=== PATIENT | female | born 1975 | race Caucasian/White ===

== ENCOUNTER 2017-09-04 13:06 | Emergency (ER) | payer OTHER ==
[~2017-09-04] VITALS: Ht 175.3 cm; Wt 61.2 kg
[~2017-09-04 13:06] MED LIST: CELE-1 PO; CYCL-332 PO; CYCL10TA PO; IBU800 PO; LOR5 PO; LOR75 PO; MET4 PO; NO ROUTINE MEDS; PER PO; PREG75CA61 PO
[2017-09-04] MEDS ORDERED: MULT1CAP59 PO (13:33)
--- NOTE | 2017-09-04 13:34 | ER Report ---
History and Physical Time Seen By MD: 13:33 Hx. of Stated Complaint: patient reports sudden onset of L arm pain and tingling as well as neck pain, also feeling some n/t in L leg and lightheaded HPI/ROS CHIEF COMPLAINT: Left arm and leg numbness and tingling HISTORY OF PRESENT ILLNESS: 42-year-old female patient presents to the emergency room with complaint of left arm and left leg numbness and tingling. Patient states this started approximately 2 hours prior to arrival. Patient states that she was doing laundry and suddenly developed tingling in left arm. She states that shortly after that she noticed that she was having some numbness tingling in left leg. She states that shortly after that she had a sharp pain to the neck. She states that the pain to the neck has resolved. She states that the numbness and tingling is persistent. She did call and talk with her informed him that she was coming to emergency room. 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 She denies any weakness, she states she just does not feel right. She has not taken any medication for this. She denies any nausea , vomiting or diarrhea. REVIEW OF SYSTEMS: Respiratory: No cough, no dyspnea. Cardiovascular: No chest pain, no palpitations. Gastrointestinal: No vomiting, no abdominal pain. Musculoskeletal: As noted above Allergies: Coded Allergies: Sulfa (Sulfonamide Antibiotics) (Verified Allergy, Mild, 09/04/17) latex (Unverified Allergy, Unknown, 09/04/17) Home Meds Reported Medications Multivitamin (MULTIVITAMINS) 1 Each Capsule, 1 EACH PO, CAPSULE 09/04/17 Discontinued Reported Medications Acetaminophen/Hydrocodone (Lortab 7.5/500) 7.5 Mg/500 Mg Tab, 1 TAB PO Q4-6H Y, #15 0 Refills 02/19/11 [None] No Conflict Check, 0 Refills 02/18/11 [No Routine Meds] No Conflict Check 06/10/10 Past Medical/Surgical History Patient has a past medical history of asthma. Patient denies any surgical history. Reviewed Nurses Notes: Yes Hx Smoking: No Hx Substance Use Disorder: No Hx Alcohol Use: No Constitutional Vital Sign - Last 24 Hours 09/04/17 09/04/17 09/04/17 09/04/17 13:25 13:27 13:32 13:36 Pulse 84 87 Resp 16 13 B/P (MAP) 140/81 (100) 140/81 112/77 (89) Pulse Ox 98 97 O2 Delivery Room Air 09/04/17 09/04/17 09/04/17 09/04/17 13:51 14:00 14:06 14:30 Pulse 76 77 Resp 18 19 B/P (MAP) 108/66 (80) 98/62 (74) Pulse Ox 95 94 09/04/17 09/04/17 09/04/17 09/04/17 14:36 15:00 15:05 15:20 Pulse 75 69 71 Resp 13 B/P (MAP) ???/??? (1665) Pulse Ox 96 95 09/04/17 09/04/17 09/04/17 09/04/17 15:35 15:50 16:05 16:41 Pulse 71 78 87 B/P (MAP) 114/76 (89) Pulse Ox 96 99 09/04/17 09/04/17 09/04/17 09/04/17 16:45 17:00 17:15 17:30 Pulse 69 75 74 70 B/P (MAP) 101/86 (91) 91/71 (78) Pulse Ox 98 Physical Exam General Appearance: The patient is alert, has no immediate need for airway protection and no current signs of toxicity. ENT: Tympanic membranes are pearly-alejandro, auditory canals are patent, mucous membranes are moist. Respiratory: Chest is non tender, lungs are clear to auscultation. Cardiac: regular rate and rhythm Gastrointestinal: Abdomen is soft and non tender, no masses, bowel sounds normal. Musculoskeletal: Neck: Neck is supple and non tender. Patient does have bilateral trapezius tightness. Extremities have full range of motion and are non tender. Skin: No rashes or lesions. Neuro: Patient is alert and oriented 4, cranial nerves II through XII grossly intact, patient has no weakness to upper or lower extremities. DIFFERENTIAL DIAGNOSIS: After history and physical exam differential diagnosis was considered for NH, anxiety, stroke. Medical Decision Making Data Points Result Diagram: 09/04/17 1332 09/04/17 1332 Laboratory Hematology Test 09/04/17 13:32 Red Blood Count 4.81 M/uL (4.17-5.56) Mean Corpuscular Volume 85.1 fL (80.0-96.0) Mean Corpuscular Hemoglobin 28.2 pg (26.0-33.0) Mean Corpuscular Hemoglobin Concent 33.2 g/dL (32.0-36.0) Red Cell Distribution Width 15.0 % (11.5-14.5) Mean Platelet Volume 10.4 fL (7.2-11.1) Neutrophils (%) (Auto) 64.6 % (39.4-72.5) Lymphocytes (%) (Auto) 25.7 % (17.6-49.6) Monocytes (%) (Auto) 7.9 % (4.1-12.4) Eosinophils (%) (Auto) 1.0 % (0.4-6.7) Basophils (%) (Auto) 0.8 % (0.3-1.4) Nucleated RBC Relative Count (auto) 0.1 /100WBC Neutrophils # (Auto) 4.9 K/uL (2.0-7.4) Lymphocytes # (Auto) 2.0 K/uL (1.3-3.6) Monocytes # (Auto) 0.6 K/uL (0.3-1.0) Eosinophils # (Auto) 0.1 K/uL (0.0-0.5) Basophils # (Auto) 0.1 K/uL (0.0-0.1) Nucleated RBC Absolute Count (auto) 0.00 K/uL D-Dimer Quantitative (PE/DVT) < 0.27 ug/ml (0-0.50) Sodium Level 139 mmol/L (137-145) Potassium Level 3.5 mmol/L (3.5-5.0) Chloride Level 106 mmol/L (98-107) Carbon Dioxide Level 22 mmol/L (22-31) Blood Urea Nitrogen 12 mg/dl (7-18) Creatinine 0.80 mg/dl (0.52-1.04) Glomerular Filtration Rate Calc > 60.0 Random Glucose 106 mg/dl (75-110) Calcium Level 9.3 mg/dl (8.4-10.2) Total Bilirubin 0.7 mg/dl (0.2-1.3) Aspartate Amino Transf (AST/SGOT) 44 U/L (0-35) Alanine Aminotransferase (ALT/SGPT) 35 U/L (0-56) Alkaline Phosphatase 75 U/L (0-126) Troponin I < 0.012 ng/ml Total Protein 7.7 gm/dl (6.3-8.2) Albumin 4.4 g/dl (3.5-5.0) Chemistry Test 09/04/17 13:32 White Blood Count 7.6 k/uL (4.5-11.0) Red Blood Count 4.81 M/uL (4.17-5.56) Hemoglobin 13.6 g/dL (12.0-16.0) Hematocrit 41.0 % (34.0-47.0) Mean Corpuscular Volume 85.1 fL (80.0-96.0) Mean Corpuscular Hemoglobin 28.2 pg (26.0-33.0) Mean Corpuscular Hemoglobin Concent 33.2 g/dL (32.0-36.0) Red Cell Distribution Width 15.0 % (11.5-14.5) Platelet Count 233 K/uL (150-450) Mean Platelet Volume 10.4 fL (7.2-11.1) Neutrophils (%) (Auto) 64.6 % (39.4-72.5) Lymphocytes (%) (Auto) 25.7 % (17.6-49.6) Monocytes (%) (Auto) 7.9 % (4.1-12.4) Eosinophils (%) (Auto) 1.0 % (0.4-6.7) Basophils (%) (Auto) 0.8 % (0.3-1.4) Nucleated RBC Relative Count (auto) 0.1 /100WBC Neutrophils # (Auto) 4.9 K/uL (2.0-7.4) Lymphocytes # (Auto) 2.0 K/uL (1.3-3.6) Monocytes # (Auto) 0.6 K/uL (0.3-1.0) Eosinophils # (Auto) 0.1 K/uL (0.0-0.5) Basophils # (Auto) 0.1 K/uL (0.0-0.1) Nucleated RBC Absolute Count (auto) 0.00 K/uL D-Dimer Quantitative (PE/DVT) < 0.27 ug/ml (0-0.50) Glomerular Filtration Rate Calc > 60.0 Calcium Level 9.3 mg/dl (8.4-10.2) Total Bilirubin 0.7 mg/dl (0.2-1.3) Aspartate Amino Transf (AST/SGOT) 44 U/L (0-35) Alanine Aminotransferase (ALT/SGPT) 35 U/L (0-56) Alkaline Phosphatase 75 U/L (0-126) Troponin I < 0.012 ng/ml Total Protein 7.7 gm/dl (6.3-8.2) Albumin 4.4 g/dl (3.5-5.0) Coagulation Test 09/04/17 13:32 D-Dimer Quantitative (PE/DVT) < 0.27 ug/ml EKG/Imaging EKG Interpretation 12 lead EKG: Rhythm: normal sinus rhythm [place]: Rightward QRS: normal ST segments: normal Imaging EXAMINATION: Brain MRI without IV contrast HISTORY: Numbness and tingling in the arms and legs. COMPARISON: Noncontrast head CT dated 09/04/2017. TECHNIQUE: Multi-planar, multi-sequence brain MRI was performed without IV contrast administration. FINDINGS: Brain volume: Normal. Sagittal midline structures: Negative. Ventricles: Negative. Acute ischemic changes: None. Hemorrhage: None. Masses / edema: None. Alejandro-white: Negative. White matter: Minimal patchy T2/FLAIR hyperintensity in the frontal and parietal white matter. Vessels: Negative. Extra-axial: None. Calvarium / scalp: Negative. Skull base: Negative. Visualized sinuses / orbits: Rightward nasal septal deviation. Visualized upper neck: Negative. IMPRESSION: 1. No acute intracranial abnormality. 2. Minimal patchy T2/FLAIR hyperintensity in the frontal and parietal white matter. The differential diagnosis includes migraine syndromes, demyelinating disease, sequela of prior infection/inflammation/trauma, and chronic small vessel ischemic change. 3. Rightward nasal septal deviation. Report Dictated By: Efraín Colby MD at 09/04/2017 4:50 PM Report E-Signed By: Efraín Colby MD at 09/04/2017 4:55 PM 2 VIEWS CHEST INDICATION: Chest pain. Numbness and tingling both arms and legs. COMPARISON: None available FINDINGS: Cardiomediastinal silhouette and pulmonary vessels within normal limits. There is no focal infiltrate or lobar consolidation. There is no pneumothorax or pleural effusion. No nodule. Upper abdomen is unremarkable. No acute bony abnormality. IMPRESSION: 1. No acute cardiopulmonary process. Report Dictated By: Ryan Christensen at 09/04/2017 3:02 PM Report E-Signed By: Ryan Christensen at 09/04/2017 3:03 PM EXAMINATION: Head CT without intravenous contrast HISTORY: Numbness and tingling to left arm and leg. COMPARISON: None. TECHNIQUE: Contiguous axial images were obtained from the skull base to the vertex without intravenous contrast. Sagittal and coronal reformatted images are also submitted. One of the following dose optimization techniques was utilized in the performance of this exam: Automated exposure control; adjustment of the mA and/ or kV according to the patient's size; or use of an iterative reconstruction technique. Specific details can be referenced in the facility's radiology CT exam operational policy. FINDINGS: Brain and intracranial structures: Ventricles, sulci, and cisterns are normal in size. Alejandro-white matter differentiation is maintained. Slight hyperdense dural based nodule along the left side of the falx along the posterior left frontal lobe, measuring 11 x 7 x 3 mm. No edema in the adjacent brain or significant mass effect. No midline shift, acute hemorrhage, or evidence of acute infarct. Calvarium / scalp: Negative. Skull base / visualized face: Nasal septum bows towards the right. Visualized sinuses / orbits: Negative. IMPRESSION: No evidence of acute infarct or intracranial hemorrhage. Small pleural-based nodule along the left side of the falx along the posterior left frontal lobe, measuring 11 x 7 x 3 mm. This is most likely a meningioma. Report Dictated By: Dionisio Gillis MD at 09/04/2017 2:59 PM Report E-Signed By: Dionisio Gillis MD at 09/04/2017 3:07 PM ED Course/Re-evaluation ED Course Patient was admitted to an exam room, history and physical were obtained. Differential diagnoses were considered. On examination patient was alert and oriented 4, cranial nerves II-XII grossly intact. A CBC, CMP, troponin, EKG, chest x-ray, CT scan of the head were done. The lab results and the chest x-ray results were negative. EKG showed a normal sinus rhythm. The CT scan of the head did show a small mass, 11 mm x 3 x 7 mm. From the location that believe that it was likely a meningioma. I did discuss the case with Dr. Deng, neurologist at [facility], his recommendation was to go ahead and do an MRI to make sure the patient has not had a stroke or TIA. His recommendation was to follow- up in 1-2 weeks. I discussed this with the patient and her . We did go ahead and do the MRI of the brain. That was unremarkable except for did show some nonspecific white matter changes which are fairly nonspecific. I discussed this with the patient and her . We will go ahead and discharge him home at this time. They're to return if any symptoms return. They are to follow-up with neurology in the next 1-2 weeks. The patient and her verbalized understanding and agreement. Decision to Disposition Date: Sep 04, 2017 Decision to Disposition Time: 17:19 Depart Departure Latest Vital Signs Vital Signs Date Time Temp Pulse Resp B/P (MAP) Pulse Ox O2 Delivery O2 Flow Rate FiO2 09/04/17 17:30 70 91/71 (78) 09/04/17 16:45 98 09/04/17 14:36 13 09/04/17 13:27 Room Air Impression: Primary Impression: Numbness and tingling of left arm and leg Condition: Improved Disposition: HOME OR SELF-CARE Referrals: HOMERO FITZGERALD PA-C (PCP) Patient Instructions: GENERAL ER DISCHARGE INSTRUCTIONS Additional Instructions: Continue with normal diet and activity. Return to the ER if this happens again. Follow up with Neurology in 1-2 weeks, call to make an appointment. [facility] [address] [place], [place] Dr. Deng recommended being seen in 1-2 weeks. Let them know that you were seen in the ER and we spoke with Dr. Deng. MADELEINE SARMIENTO Sep 04, 2017 13:34
[2017-09-04] MEDS ORDERED: ASPIRIN 81 MG CHEW PO ONE (13:45)
--- NOTE | 2017-09-04 13:50 | EKG ---
FACILITY: [facility] PATIENT NAME: LEXIE HIGGINS : [id number] MR: [id number] V: [id number] EXAM DATE: ORDERING PHYSICIAN: MADELEINE SARMIENTO TECHNOLOGIST: BRANDYN Bennett Reason : Blood Pressure : / mmHG Vent. Rate : 082 BPM Atrial Rate : 082 BPM P-R Int : 176 ms QRS Dur : 100 ms QT Int : 384 ms P-R-T Axes : 084 093 077 degrees QTc Int : 448 ms Normal sinus rhythm Possible Left atrial enlargement Rightward axis Incomplete right bundle branch block Borderline ECG No previous ECGs available Confirmed by ARIELLA LEE ([id number]) on 09/04/2017 1:53:14 PM Referred By: Confirmed By:ARIELLA LEE
[2017-09-04 14:06] LABS: PLATELET COUNT, AUTOMATED 233 K/uL (150-450)
--- NOTE | 2017-09-04 15:07 | RADIOLOGY IMAGING REPORT ---
FACILITY: [facility] PATIENT NAME: Daria Thompson : 1975 MR: [id number] V: [id number] EXAM DATE: ORDERING PHYSICIAN: MADELEINE SARMIENTO TECHNOLOGIST: Location: [facility] Patient: Daria Thompson : 1975 Visit/Account:[id number] Date of Sevice: 09/04/2017 2 VIEWS CHEST INDICATION: Chest pain. Numbness and tingling both arms and legs. COMPARISON: None available FINDINGS: Cardiomediastinal silhouette and pulmonary vessels within normal limits. There is no focal infiltrate or lobar consolidation. There is no pneumothorax or pleural effusion. No nodule. Upper abdomen is unremarkable. No acute bony abnormality. IMPRESSION: 1. No acute cardiopulmonary process. Report Dictated By: Ryan Christensen at 09/04/2017 3:02 PM Report E-Signed By: Ryan Christensen at 09/04/2017 3:03 PM WSN:[id number]
--- NOTE | 2017-09-04 15:12 | RADIOLOGY IMAGING REPORT ---
FACILITY: [facility] PATIENT NAME: Daria Thompson : 1975 MR: [id number] V: [id number] EXAM DATE: ORDERING PHYSICIAN: MADELEINE SARMIENTO TECHNOLOGIST: Location: [facility] Patient: Daria Thompson : 1975 Visit/Account:[id number] Date of Sevice: 09/04/2017 EXAMINATION: Head CT without intravenous contrast HISTORY: Numbness and tingling to left arm and leg. COMPARISON: None. TECHNIQUE: Contiguous axial images were obtained from the skull base to the vertex without intraven ous contrast. Sagittal and coronal reformatted images are also submitted. One of the following dose optimization techniques was utilized in the performance of this exam: Autom ated exposure control; adjustment of the mA and/or kV according to the patient's size; or use of an i terative reconstruction technique. Specific details can be referenced in the facility's radiology C T exam operational policy. FINDINGS: Brain and intracranial structures: Ventricles, sulci, and cisterns are normal in size. Alejandro-white ma tter differentiation is maintained. Slight hyperdense dural based nodule along the left side of the f zain along the posterior left frontal lobe, measuring 11 x 7 x 3 mm. No edema in the adjacent brain or significant mass effect. No midline shift, acute hemorrhage, or evidence of acute infarct. Calvarium / scalp: Negative. Skull base / visualized face: Nasal septum bows towards the right. Visualized sinuses / orbits: Negative. IMPRESSION: No evidence of acute infarct or intracranial hemorrhage. Small pleural-based nodule along the left side of the falx along the posterior left frontal lobe, jyoti suring 11 x 7 x 3 mm. This is most likely a meningioma. Report Dictated By: Dionisio Gillis MD at 09/04/2017 2:59 PM Report E-Signed By: Dionisio Gillis MD at 09/04/2017 3:07 PM WSN:[id number]
--- NOTE | 2017-09-04 16:58 | RADIOLOGY IMAGING REPORT ---
FACILITY: [facility] PATIENT NAME: Daria Thompson : 1975 MR: [id number] V: [id number] EXAM DATE: ORDERING PHYSICIAN: MADELEINE SARMIENTO TECHNOLOGIST: Location: [facility] Patient: Daria Thompson : 1975 Visit/Account:[id number] Date of Sevice: 09/04/2017 EXAMINATION: Brain MRI without IV contrast HISTORY: Numbness and tingling in the arms and legs. COMPARISON: Noncontrast head CT dated 09/04/2017. TECHNIQUE: Multi-planar, multi-sequence brain MRI was performed without IV contrast administration. FINDINGS: Brain volume: Normal. Sagittal midline structures: Negative. Ventricles: Negative. Acute ischemic changes: None. Hemorrhage: None. Masses / edema: None. Alejandro-white: Negative. White matter: Minimal patchy T2/FLAIR hyperintensity in the frontal and parietal white matter. Vessels: Negative. Extra-axial: None. Calvarium / scalp: Negative. Skull base: Negative. Visualized sinuses / orbits: Rightward nasal septal deviation. Visualized upper neck: Negative. IMPRESSION: 1. No acute intracranial abnormality. 2. Minimal patchy T2/FLAIR hyperintensity in the frontal and parietal white matter. The differential diagnosis includes migraine syndromes, demyelinating disease, sequela of prior infection/inflammation /trauma, and chronic small vessel ischemic change. 3. Rightward nasal septal deviation. Report Dictated By: Efraín Colby MD at 09/04/2017 4:50 PM Report E-Signed By: Efraín Colby MD at 09/04/2017 4:55 PM WSN:[email or web address]
[2017-09-04 17:30] VITALS: BP 91/71
== END 2017-09-04 17:39 | disposition home or self-care (01) ==
LOC: ER 13:06
DX: R20.0 Anesthesia of skin (principal); R20.2 Paresthesia of skin
CPT/HCPCS: 70450; 70551; 71046; 82040; 82247; 82310; 82374; 82435; 82565; 82947; 84075; 84132; 84155; 84295; 84450; 84460; 84484; 84520; 85025; 85379; 93005; 99284

== ENCOUNTER 2018-01-25 06:57 | Emergency (ER) | payer OTHER ==
[~2018-01-25 06:57] MED LIST changes: +MULT1CAP59 PO
--- NOTE | 2018-01-25 07:07 | ER Report ---
History and Physical Time Seen By MD: 07:15 Hx. of Stated Complaint: FELT A PULL IN LEFT SHOULDER AFTER CARRYING SOMETHING UP THE STAIRS WITH RIGHT HAND. STATES THAT HER PAIN HAS WORSENED AND NOW HAS NUMBNESS AND TINGLING IN HAND. HPI/ROS CHIEF COMPLAINT: Left arm pain, paresthesias, subjective weakness HISTORY OF PRESENT ILLNESS: Patient is a 42-year-old female here with complaints of left arm and shoulder pain, paresthesias to the distal extremity lateral aspect of the arm. She has a history of musculoskeletal issues with her upper back and neck and has been seem by a therapist previously with steroid injections. Patient reports that approximately one week ago she felt a popping sensation in her neck with subsequent progression of paresthesias to her distal lateral arm. She had intact strength which is equal in the upper extremities bilaterally. She also complains of pain with range of motion of the left shoulder. She reports that she previously had an MRI of the neck and declines further radiologic testing at this time.. Patient denies fevers, chills, chest pain, shortness of breath, nausea, vomiting. REVIEW OF SYSTEMS: Constitutional: No fever, no chills. Eyes: No discharge. ENT: No sore throat. Cardiovascular: No chest pain, no palpitations. Respiratory: No cough, no shortness of breath. Gastrointestinal: No abdominal pain, no vomiting. Genitourinary: No hematuria. Musculoskeletal: No back pain. Skin: No rashes. Neurological: No headache, + left upper extremity paresthesias/subjective weakness Allergies: Coded Allergies: Sulfa (Sulfonamide Antibiotics) (Verified Allergy, Mild, 09/04/17) latex (Unverified Allergy, Unknown, 09/04/17) Home Meds Active Scripts Cyclobenzaprine Hcl (CYCLOBENZAPRINE HCL) 10 Mg Tablet, 10 MG PO Q8H Y for MUSCLE SPASMS, #20 TAB 0 Refills Prov:KEVIN BOWIE DO 01/25/18 Prednisone (PREDNISONE) 20 Mg Tablet, 40 MG PO QDAY for 5 Days, #10 TAB Prov:KEVIN BOWIE DO 01/25/18 Reported Medications Multivitamin (MULTIVITAMINS) 1 Each Capsule, 1 EACH PO, CAPSULE 09/04/17 Hx Smoking: No Hx Substance Use Disorder: No Hx Alcohol Use: No Constitutional Vital Sign - Last 24 Hours 5/28/18 01/25/18 01/25/18 01/25/18 07:00 07:01 08:00 08:30 Temp 97.3 Pulse 61 63 Resp 18 B/P (MAP) 119/70 (86) 119/70 108/68 (81) 114/80 (91) Pulse Ox 100 91 O2 Delivery Room Air 01/25/18 01/25/18 01/25/18 01/25/18 09:00 09:00 09:30 10:00 Pulse 62 62 67 62 B/P (MAP) 107/72 (84) 111/64 (80) 111/66 (81) Pulse Ox 90 90 91 90 01/25/18 10:19 B/P (MAP) 97/65 (76) Physical Exam General Appearance: The patient is alert, has no immediate need for airway protection and no signs of toxicity. + Moderate distress due to pain Eyes: Pupils equal and round no pallor or injection. ENT, Mouth: Mucous membranes are moist. Respiratory: There are no retractions, lungs are clear to auscultation. Cardiovascular: Regular rate and rhythm. Gastrointestinal: Abdomen is soft and non tender, no masses, bowel sounds normal. Neurological: No focal motor deficits, sensation intact in UE b/l Skin: Warm and dry, no rashes. Musculoskeletal: Neck is supple non tender. Extremities are nontender, nonswollen and have full range of motion + with painful ROM of the left shoulder DIFFERENTIAL DIAGNOSIS: After history and physical exam differential diagnosis was considered for nerve impingement, neuropathy, trauma, arthritis, neuropathy Medical Decision Making Data Points Result Diagram: 01/25/18 0730 01/25/18 0730 Laboratory Hematology Test 01/25/18 07:30 Red Blood Count 4.61 M/uL (4.17-5.56) Mean Corpuscular Volume 85.7 fL (80.0-96.0) Mean Corpuscular Hemoglobin 29.1 pg (26.0-33.0) Mean Corpuscular Hemoglobin Concent 33.9 g/dL (32.0-36.0) Red Cell Distribution Width 14.9 % (11.5-14.5) Mean Platelet Volume 10.5 fL (7.2-11.1) Neutrophils (%) (Auto) 76.5 % (39.4-72.5) Lymphocytes (%) (Auto) 13.5 % (17.6-49.6) Monocytes (%) (Auto) 7.4 % (4.1-12.4) Eosinophils (%) (Auto) 1.9 % (0.4-6.7) Basophils (%) (Auto) 0.7 % (0.3-1.4) Nucleated RBC Relative Count (auto) 0.1 /100WBC Neutrophils # (Auto) 5.5 K/uL (2.0-7.4) Lymphocytes # (Auto) 1.0 K/uL (1.3-3.6) Monocytes # (Auto) 0.5 K/uL (0.3-1.0) Eosinophils # (Auto) 0.1 K/uL (0.0-0.5) Basophils # (Auto) 0.1 K/uL (0.0-0.1) Nucleated RBC Absolute Count (auto) 0.01 K/uL Sodium Level 140 mmol/L (137-145) Potassium Level 3.1 mmol/L (3.5-5.0) Chloride Level 106 mmol/L (98-107) Carbon Dioxide Level 23 mmol/L (22-31) Blood Urea Nitrogen 13 mg/dl (7-18) Creatinine 0.80 mg/dl (0.52-1.04) Glomerular Filtration Rate Calc > 60.0 Random Glucose 87 mg/dl (75-110) Calcium Level 9.4 mg/dl (8.4-10.2) Total Bilirubin 0.8 mg/dl (0.2-1.3) Aspartate Amino Transf (AST/SGOT) 28 U/L (0-35) Alanine Aminotransferase (ALT/SGPT) 28 U/L (0-56) Alkaline Phosphatase 77 U/L (0-126) Troponin I < 0.012 ng/ml Total Protein 7.1 gm/dl (6.3-8.2) Albumin 4.0 g/dl (3.5-5.0) Chemistry Test 01/25/18 07:30 White Blood Count 7.2 k/uL (4.5-11.0) Red Blood Count 4.61 M/uL (4.17-5.56) Hemoglobin 13.4 g/dL (12.0-16.0) Hematocrit 39.5 % (34.0-47.0) Mean Corpuscular Volume 85.7 fL (80.0-96.0) Mean Corpuscular Hemoglobin 29.1 pg (26.0-33.0) Mean Corpuscular Hemoglobin Concent 33.9 g/dL (32.0-36.0) Red Cell Distribution Width 14.9 % (11.5-14.5) Platelet Count 188 K/uL (150-450) Mean Platelet Volume 10.5 fL (7.2-11.1) Neutrophils (%) (Auto) 76.5 % (39.4-72.5) Lymphocytes (%) (Auto) 13.5 % (17.6-49.6) Monocytes (%) (Auto) 7.4 % (4.1-12.4) Eosinophils (%) (Auto) 1.9 % (0.4-6.7) Basophils (%) (Auto) 0.7 % (0.3-1.4) Nucleated RBC Relative Count (auto) 0.1 /100WBC Neutrophils # (Auto) 5.5 K/uL (2.0-7.4) Lymphocytes # (Auto) 1.0 K/uL (1.3-3.6) Monocytes # (Auto) 0.5 K/uL (0.3-1.0) Eosinophils # (Auto) 0.1 K/uL (0.0-0.5) Basophils # (Auto) 0.1 K/uL (0.0-0.1) Nucleated RBC Absolute Count (auto) 0.01 K/uL Glomerular Filtration Rate Calc > 60.0 Calcium Level 9.4 mg/dl (8.4-10.2) Total Bilirubin 0.8 mg/dl (0.2-1.3) Aspartate Amino Transf (AST/SGOT) 28 U/L (0-35) Alanine Aminotransferase (ALT/SGPT) 28 U/L (0-56) Alkaline Phosphatase 77 U/L (0-126) Troponin I < 0.012 ng/ml Total Protein 7.1 gm/dl (6.3-8.2) Albumin 4.0 g/dl (3.5-5.0) ED Course/Re-evaluation ED Course Patient is a 42-year-old female here with complaints of left shoulder pain and left flank pain most likely musculoskeletal in nature. Patient recently had a MRI which was unremarkable and she declined further imaging at this visit. Due to concern for possible atypical chest pain patient labs were sent and EKG is completed which were unremarkable for ischemic changes or concerning for myocardial infarction, cardiac enzymes negative. She received Toradol, morphine , prednisone, diazepam. I identified a point of maximal tenderness on the left scapular border and injected 1:1 Kenolog: Lidocaine solution into the muscle for directed relief. Patient was discharged on prednisone burst therapy x 5 days and flexeril for relief. Patient agreed to follow up closely with PCP or PT. Procedure Injection of Kenalog and 1% lidocaine into tender point at the border of the lower scapula. A point of maximum tenderness was identified and the location was scrubbed using alcohol swab. I injected approximately 2.5 mL of 1-1 mixture of lidocaine and Kenalog into the location. A sterile bandage was placed at the site. Hemostasis was achieved. Decision to Disposition Date: January 25, 2018 Decision to Disposition Time: 10:14 Depart Departure Latest Vital Signs Vital Signs Date Time Temp Pulse Resp B/P (MAP) Pulse Ox O2 Delivery O2 Flow Rate FiO2 01/25/18 10:19 97/65 (76) 01/25/18 10:00 62 90 01/25/18 07:01 97.3 18 Room Air Impression: Primary Impression: Paresthesia and pain of left extremity Additional Impressions: Shoulder pain, left Muscle spasm Condition: Improved Disposition: HOME OR SELF-CARE Referrals: HOMERO FITZGERALD PA-C (PCP) New Scripts Cyclobenzaprine Hcl (CYCLOBENZAPRINE HCL) 10 Mg Tablet 10 MG PO Q8H Y for MUSCLE SPASMS, #20 TAB 0 Refills Prov: KEVIN BOWIE DO 01/25/18 Prednisone (PREDNISONE) 20 Mg Tablet 40 MG PO QDAY for 5 Days, #10 TAB Prov: KEVIN BOWIE DO 01/25/18 Patient Instructions: Acute Neck Pain (ED), Cyclobenzaprine (By mouth), Prednisolone (By mouth) Additional Instructions: Please take 40 mg or 2 tablets of prednisone daily for 5 days. You may take Flexeril 1 tab every 8 hours as needed for muscle spasm pain. You may take Advil or naproxen as needed for pain relief. Please return promptly with worsening symptoms, fevers, incontinence of urine or bowel function, headache. Problem Qualifiers KEVIN BOWIE DO January 25, 2018 07:07
[2018-01-25] MEDS ORDERED: predniSONE 20 MG TAB PO ONE (07:20)
[2018-01-25] MEDS ORDERED: MORPHINE 4 MG/ML SDV IVP ONE (07:20)
--- NOTE | 2018-01-25 07:34 | EKG ---
FACILITY: [facility] PATIENT NAME: LEXIE HIGGINS : [id number] MR: [id number] V: [id number] EXAM DATE: ORDERING PHYSICIAN: KEVIN BOWIE TECHNOLOGIST: AMBER Bennett Reason : Blood Pressure : / mmHG Vent. Rate : 066 BPM Atrial Rate : 066 BPM P-R Int : 204 ms QRS Dur : 074 ms QT Int : 396 ms P-R-T Axes : 080 094 066 degrees QTc Int : 415 ms Normal sinus rhythm Rightward axis Septal infarct , age undetermined Abnormal ECG Confirmed by ADELIA TURNER ([id number]) on 01/26/2018 6:39:01 AM Referred By: Confirmed By:ADELIA TURNER
[2018-01-25 07:41] LABS: PLATELET COUNT, AUTOMATED 188 K/uL (150-450)
[2018-01-25] MEDS ORDERED: KETOROLAC 30 MG/ML VIAL IVP ONE (07:50)
[2018-01-25] MEDS ORDERED: DIAZEPAM 10 MG TAB PO ONE (08:30)
[2018-01-25] MEDS ORDERED: TRIAMCINOLONE ACE(*) 40 MG/ML 1 ML ONE (09:51)
[2018-01-25] MEDS ORDERED: TRIAMCINOLONE ACE 40 MG/ML VL IM ONE (10:05)
[2018-01-25] MEDS ORDERED: PRED20TA6 PO (10:11)
[2018-01-25] MEDS ORDERED: CYCL10TA29 PO (10:11)
[2018-01-25 10:19] VITALS: BP 97/65
[2018-01-25] MEDS ORDERED: DIA5 PO (16:32)
[2018-01-25] MEDS ORDERED: ONDA4TAB PO (16:37)
== END 2018-01-25 10:23 | disposition home or self-care (01) ==
LOC: ER 07:03
DX: M62.838 Other muscle spasm (principal); M25.512 Pain in left shoulder; R20.2 Paresthesia of skin
CPT/HCPCS: 84484; 85025; 93005; 96374; 96375; 99283; J1885; J2270; J3301; J7512; 82040; 82247; 82310; 82374; 82435; 82565; 82947; 84075; 84132; 84155; 84295; 84450; 84460; 84520

== ENCOUNTER 2018-01-25 14:48 | Emergency (ER) | payer OTHER ==
[~2018-01-25 14:48] MED LIST changes: +CYCL10TA29 PO; +PRED20TA6 PO
[2018-01-25] MEDS ORDERED: MORPHINE 4 MG/ML SDV IVP ONE (15:05)
[2018-01-25] MEDS ORDERED: LORazepam 2 MG/ML VIAL IVP ONE (15:05)
--- NOTE | 2018-01-25 15:13 | ER Report ---
History and Physical Time Seen By MD: 14:58 Hx. of Stated Complaint: WORSENING OF LEFT ARM PAIN THAT WAS NOT RELIEVED WITH HOME MEDS. HPI/ROS CHIEF COMPLAINT: Back pain HISTORY OF PRESENT ILLNESS: This is a 42-year-old female who presents to the emergency department with her for back pain. Patient was seen and evaluated in the emergency department earlier this morning and was giving Valium , morphine 2. injection and sent home with some prescriptions for the thoracic back pain. Patient states that the pain is the same if not worse, patient is unable to find a comfortable place, and is having numbness and tingling down the ulnar side of the left arm into the left fingers. Patient states this started approximately 2 weeks ago while she was carrying some equipment up some stairs and developed some pain in the back it did seem to improve and then would become painful again and then yesterday the pain became fairly him bearable and the patient ultimately decided come in today for further evaluation. Patient did not want imaging earlier this morning however she is now agreeable to imaging and IV medications. Patient denies chest pain or shortness of breath. No nausea or vomiting. No aches or chills. REVIEW OF SYSTEMS: Respiratory: No cough, no dyspnea. Cardiovascular: No chest pain, no palpitations. Gastrointestinal: No vomiting, no abdominal pain. Musculoskeletal: As above. Allergies: Coded Allergies: Sulfa (Sulfonamide Antibiotics) (Verified Allergy, Mild, 01/25/18) latex (Unverified Allergy, Unknown, 01/25/18) Home Meds Active Scripts Ondansetron (ZOFRAN ODT) 4 Mg Tab.rapdis, 4 MG PO Q6H Y for NAUSEA/VOMITING, # 20 TAB.TIMA Prov:ASHLEE SANTOS [facility] 01/25/18 Diazepam (VALIUM) 5 Mg Tablet, 5 MG PO 2-3XD, #15 TAB Prov:ASHLEE SANTOS [facility] 01/25/18 Cyclobenzaprine Hcl (CYCLOBENZAPRINE HCL) 10 Mg Tablet, 10 MG PO Q8H Y for MUSCLE SPASMS, #20 TAB 0 Refills Prov:KEVIN BOWIE DO 01/25/18 Prednisone (PREDNISONE) 20 Mg Tablet, 40 MG PO QDAY for 5 Days, #10 TAB Prov:KEVIN BOWIE DO 01/25/18 Reported Medications Multivitamin (MULTIVITAMINS) 1 Each Capsule, 1 EACH PO, CAPSULE 09/04/17 Past Medical/Surgical History The patient has a past medical and surgical history of asthma, otherwise unremarkable past medical history. Reviewed Nurses Notes: Yes Hx Smoking: No Hx Substance Use Disorder: No Hx Alcohol Use: No Constitutional Vital Sign - Last 24 Hours 01/25/18 01/25/18 01/25/18 01/25/18 14:54 15:00 15:48 16:00 Temp 97.0 Pulse 87 88 66 Resp 18 B/P (MAP) 106/69 82/61 (68) 96/63 (74) Pulse Ox 94 99 97 O2 Delivery Room Air 01/25/18 01/25/18 16:30 17:00 Pulse 70 62 B/P (MAP) 92/56 (68) 97/62 (74) Pulse Ox 95 93 Physical Exam General Appearance: The patient is alert, has no immediate need for airway protection and no current signs of toxicity, unable to sit in one position, appears uncomfortable. Eyes: Pupils equal and round no injection. Respiratory: Chest is non tender, lungs are clear to auscultation. Cardiac: regular rate and rhythm, no murmurs, clicks or rubs. Gastrointestinal: Abdomen is soft and non tender, no masses, bowel sounds normal. Musculoskeletal: Neck: Neck is supple and non tender. No obvious deformities, crepitations to the thoracic or lumbar spine. The area surrounding the left medial scapula is very tense, muscles are very tight. It does feel as though the upper thoracic spine is being pulled slightly to the left. CMS intact down the left hand. Extremities have full range of motion and are non tender. Skin: No rashes or lesions. DIFFERENTIAL DIAGNOSIS: After history and physical exam differential diagnosis was considered for back pain including but not limited to muscular pain, herniated disc, spine fracture,subluxation, thoracic outlet syndrome, intra- abdominal causes and urinary tract infection. Medical Decision Making EKG/Imaging Imaging INDICATION: Thoracic back pain. DATE: 01/25/2018 3:05 PM TECHNIQUE: SHOULDER MIN 2 VIEWS LEFT, THORACIC SPINE 3 VIEWS COMPARISON: None FINDINGS: The humeral head articulates normally with the glenoid. The coraco- and acromioclavicular distances are normal. No evidence of fracture or dislocation. Slight curvature of the upper thoracic spine is likely positional. Vertebral body heights are maintained. Disc and endplate degenerative findings are mild. IMPRESSION: Mild degenerative findings in the thoracic spine. No acute osseous antibody. Radiographically normal shoulder. Report Dictated By: Rachel Smith MD at 01/25/2018 3:47 PM Report E-Signed By: Rachel Smith MD at 01/25/2018 3:50 PM WSN:[id number] INDICATION: Thoracic back pain. DATE: 01/25/2018 3:05 PM TECHNIQUE: SHOULDER MIN 2 VIEWS LEFT, THORACIC SPINE 3 VIEWS COMPARISON: None FINDINGS: The humeral head articulates normally with the glenoid. The coraco- and acromioclavicular distances are normal. No evidence of fracture or dislocation. Slight curvature of the upper thoracic spine is likely positional. Vertebral body heights are maintained. Disc and endplate degenerative findings are mild. IMPRESSION: Mild degenerative findings in the thoracic spine. No acute osseous antibody. Radiographically normal shoulder. Report Dictated By: Rachel Smith MD at 01/25/2018 3:47 PM Report E-Signed By: Rachel Smith MD at 01/25/2018 3:50 PM ED Course/Re-evaluation Clinical Indication for ER IV: IV Access ED Course The patient was admitted to a room. A history of sore pain. Differential diagnoses were considered. After a lengthy discussion with the patient and her the return visit today they elected to proceed with a thoracic spine x- ray and shoulder x-ray. The thoracic and shoulder x-ray were negative for any acute abnormalities. They also elected to proceed with IV medications. An IV was started. 0.5 mg IV Ativan were given.4 mg IV morphine. Patient tolerated well, states the pain have improved did well during the x-ray however when she returned the pain seemed to increase again and is starting to have some additional muscle spasms pain has gone from a 4-5 to an 8 or 9. I did talk to the patient about IV Valium and the side effects of this however given the patient's discomfort the muscle spasms we elected to proceed with this patient was given 2 mg IV Valium. Patient was also given a prescription for oral Valium , patient was also given a prescription for Zofran. After the IV Valium was given the patient did sleep for proximal 2030 minutes, she did wake is alert and oriented and appropriate although groggy, she states she feels she is able to go home at this time with her who will continue to monitor her through the night. The patient was also instructed to take the other medications that she received earlier today as prescribed. I also have written a prescription for physical therapy the patient will follow-up with PT tomorrow. Patient was in agreement with this plan of care and discharged home. Patient and other questions. Decision to Disposition Date: January 25, 2018 Decision to Disposition Time: 17:25 Depart Departure Latest Vital Signs Vital Signs Date Time Temp Pulse Resp B/P (MAP) Pulse Ox O2 Delivery O2 Flow Rate FiO2 01/25/18 17:00 62 97/62 (74) 93 01/25/18 14:54 97.0 18 Room Air Impression: Primary Impression: Thoracic back pain Additional Impression: Muscle spasm Condition: Improved Disposition: HOME OR SELF-CARE Referrals: HOMERO FITZGERALD PA-C (PCP) New Scripts Ondansetron (ZOFRAN ODT) 4 Mg Tab.rapdis 4 MG PO Q6H Y for NAUSEA/VOMITING, #20 TAB.TIMA Prov: ASHLEE SANTOS [facility]- 01/25/18 Diazepam (VALIUM) 5 Mg Tablet 5 MG PO 2-3XD, #15 TAB Prov: ASHLEE SANTOS [facility]- 01/25/18 Patient Instructions: Back Pain (ED), Muscle Strain (ED) Additional Instructions: Drink plenty of fluids. Get plenty of rest. Be sure to take the medications as prescribed. You have been given a lot of medication today, be sure to monitor for respiratory problems, if something is concerning call 911 or follow up in the ED as soon as possible. Follow up with Physical therapy as soon as possible. Follow up with your primary care provider as needed. Return to the ED for any other concerns or worsening symptoms. Problem Qualifiers Primary Impression: Thoracic back pain Chronicity: acute Back pain laterality: left Qualified Codes: M54.6 - Pain in thoracic spine ASHLEE SANTOS [facility]- January 25, 2018 15:13
--- NOTE | 2018-01-25 15:54 | RADIOLOGY IMAGING REPORT ---
FACILITY: [facility] [place] PATIENT NAME: Daria Thompson : 1975 MR: [id number] V: [id number] EXAM DATE: ORDERING PHYSICIAN: ASHLEE SANTOS TECHNOLOGIST: [facility] Patient: Daria Thompson : 1975 Visit/Account:[id number] Date of Sevice: 01/25/2018 INDICATION: Thoracic back pain. DATE: 01/25/2018 3:05 PM TECHNIQUE: SHOULDER MIN 2 VIEWS LEFT, THORACIC SPINE 3 VIEWS COMPARISON: None FINDINGS: The humeral head articulates normally with the glenoid. The coraco- and acromioclavicular distances are normal. No evidence of fracture or dislocation. Slight curvature of the upper thoracic spine is likely positional. Vertebral body heights are maintai wilfredo. Disc and endplate degenerative findings are mild. IMPRESSION: Mild degenerative findings in the thoracic spine. No acute osseous antibody. Radiographically normal shoulder. Report Dictated By: Rachel Smith MD at 01/25/2018 3:47 PM Report E-Signed By: Rachel Smith MD at 01/25/2018 3:50 PM WSN:[id number]
--- NOTE | 2018-01-25 15:55 | RADIOLOGY IMAGING REPORT ---
FACILITY: [facility] [place] PATIENT NAME: Daria Thompson : 1975 MR: [id number] V: [id number] EXAM DATE: ORDERING PHYSICIAN: ASHLEE SANTOS TECHNOLOGIST: Location: [facility] Patient: Daria Thompson : 1975 Visit/Account:[id number] Date of Sevice: 01/25/2018 INDICATION: Thoracic back pain. DATE: 01/25/2018 3:05 PM TECHNIQUE: SHOULDER MIN 2 VIEWS LEFT, THORACIC SPINE 3 VIEWS COMPARISON: None FINDINGS: The humeral head articulates normally with the glenoid. The coraco- and acromioclavicular distances are normal. No evidence of fracture or dislocation. Slight curvature of the upper thoracic spine is likely positional. Vertebral body heights are maintai wilfredo. Disc and endplate degenerative findings are mild. IMPRESSION: Mild degenerative findings in the thoracic spine. No acute osseous antibody. Radiographically normal shoulder. Report Dictated By: Rachel Smith MD at 01/25/2018 3:47 PM Report E-Signed By: Rachel Smith MD at 01/25/2018 3:50 PM WSN:[id number]
[2018-01-25] MEDS ORDERED: DIAZEPAM 50 MG/10 ML MDV IVP ONE ×2 (16:15→16:35)
[2018-01-25] MEDS ORDERED: DIA5 PO (16:32)
[2018-01-25] MEDS ORDERED: ONDA4TAB PO (16:37)
[2018-01-25] MEDS ORDERED: DIAZEPAM 50 MG/10 ML MDV ONE (16:55)
[2018-01-25 17:00] VITALS: BP 97/62
== END 2018-01-25 17:35 | disposition home or self-care (01) ==
LOC: ER 15:10
DX: M54.6 Pain in thoracic spine (principal); M62.838 Other muscle spasm
CPT/HCPCS: 72072; 73030; 96374; 96375; 99283; J2060; J2270; J3360

== ENCOUNTER 2018-01-26 22:56 | Emergency (ER) | payer OTHER ==
[~2018-01-26 22:56] MED LIST changes: +DIA5 PO; +ONDA4TAB PO
--- NOTE | 2018-01-26 22:59 | ER Report ---
History and Physical Time Seen By MD: 23:03 HPI/ROS CHIEF COMPLAINT: Neck pain, left arm pain HISTORY OF PRESENT ILLNESS: 42-year-old female presents with severe mid back pain and left arm pain. She's been seen for neck pain and thoracic pain. She' s had an evaluation. She has a family history of degenerative disc disease. Patient's been seen in the ER 2 times in the previous 2 days. She's been taking prednisone, Valium and ibuprofen. She's also begin cyclobenzaprine without improvement. Her pain is actually worse today after physical therapy. Patient describes a gnawing 10/10 pain in her left arm. She notes severe pain in the area of her left scapula. She had an extensive evaluation 2 days ago. REVIEW OF SYSTEMS: Respiratory: No cough, no dyspnea. Cardiovascular: No chest pain, no palpitations. Gastrointestinal: No vomiting, no abdominal pain. Musculoskeletal: As above. Allergies: Coded Allergies: Sulfa (Sulfonamide Antibiotics) (Verified Allergy, Mild, 01/25/18) latex (Unverified Allergy, Unknown, 01/25/18) Home Meds Active Scripts Methocarbamol (ROBAXIN-750) 750 Mg Tablet, 1-2 TAB PO TID Y for MUSCLE SPASM RELIEF, #30 Prov:KIKIGINNY DO 01/27/18 Oxycodone Hcl/Acetaminophen (PERCOCET 5-325 MG TABLET) 1 Each Tablet, 1-2 EACH PO Q4-6H Y for PAIN, #20 Prov:KIKIGINNY Elizabeth DO 01/27/18 Ondansetron (ZOFRAN ODT) 4 Mg Tab.rapdis, 4 MG PO Q6H Y for NAUSEA/VOMITING, # 20 TAB.TIMA Prov:ASHLEE SANTOS [facility] 01/25/18 Diazepam (VALIUM) 5 Mg Tablet, 5 MG PO 2-3XD, #15 TAB Prov:ASHLEE SANTOS [facility] 01/25/18 Cyclobenzaprine Hcl (CYCLOBENZAPRINE HCL) 10 Mg Tablet, 10 MG PO Q8H Y for MUSCLE SPASMS, #20 TAB 0 Refills Prov:KEVIN BOWIE DO 01/25/18 Prednisone (PREDNISONE) 20 Mg Tablet, 40 MG PO QDAY for 5 Days, #10 TAB Prov:KEVIN BOWIE DO 01/25/18 Reported Medications Multivitamin (MULTIVITAMINS) 1 Each Capsule, 1 EACH PO, CAPSULE 09/04/17 Hx Smoking: No Hx Substance Use Disorder: No Hx Alcohol Use: No Constitutional Vital Sign - Last 24 Hours 01/26/18 01/26/18 01/26/18 01/26/18 22:59 23:01 23:04 23:09 Temp 97.9 Pulse 69 72 66 Resp 16 B/P (MAP) 109/76 (87) 109/76 Pulse Ox 99 100 100 100 O2 Delivery Room Air 01/26/18 01/26/18 01/26/18 01/26/18 23:14 23:18 23:19 23:24 Pulse 68 63 62 B/P (MAP) 109/77 (88) Pulse Ox 99 100 98 01/26/18 01/26/18 01/26/18 01/26/18 23:29 23:44 23:47 23:58 Pulse 64 66 B/P (MAP) 126/77 (93) 124/78 (93) Pulse Ox 97 98 01/26/18 01/27/18 01/27/18 01/27/18 23:59 00:10 00:14 00:22 Pulse 65 64 B/P (MAP) 115/67 (83) Pulse Ox 97 97 O2 Flow Rate 1.0 01/27/18 01/27/18 01/27/18 01/27/18 00:29 00:44 00:49 01:04 Pulse 54 51 49 55 Pulse Ox 97 96 95 97 01/27/18 01/27/18 01/27/18 01/27/18 01:19 01:34 01:39 01:47 Pulse 52 50 B/P (MAP) 108/69 (82) Pulse Ox 94 89 93 Physical Exam General Appearance: The patient is alert, has no immediate need for airway protection and no current signs of toxicity., There is tenderness and spasm of the paracervical muscles, especially in the left side extending down into the thoracic region HEENT: Pupils equal and round no injection. TMs normal, oropharynx without redness or exudate, mucous. Membranes are moist Respiratory: Chest is non tender, lungs are clear to auscultation. Cardiac: regular rate and rhythm Gastrointestinal: Abdomen is soft and non tender, no masses, bowel sounds normal. Musculoskeletal: Neck: Neck is supple and non tender. There is no increased tenderness with compression of the cervical spine with right and left rotation. Extremities have full range of motion and are non tender. Skin: No rashes or lesions. DIFFERENTIAL DIAGNOSIS: After history and physical exam differential diagnosis was considered for degenerative disc disease,, herniated disc, cervical radiculopathy, osteomyelitis, discitis, arthritis, cervical strain, thoracic strain Medical Decision Making ED Course/Re-evaluation ED Course Patient was admitted to an examination room. H&P was done. The differential diagnosis was considered. On clinical examination. Patient has left arm pain consistent with cervical radiculopathy. I think she has a herniated disc. Her symptoms have been worsening over the last several weeks. Especially the last 24 hours. Patient was treated with Dilaudid 2 mg by mouth and Phenergan 25 mg. After 30 minutes she had no improvement of her pain. Peripheral IV was established. She was given fentanyl 100 g IV. On reevaluation at 30 minutes. She does have some improvement of her pain. She still notes 5/10 pain. An additional dose of fentanyl 50 g is given IV. Patient be discharged home with a perception of Percocet. She is advised to follow-up. She'll need an MRI. Prescription for MRI as provided. She is advised to follow-up with Dr. Ryan spinal surgeon. Decision to Disposition Date: January 27, 2018 Decision to Disposition Time: 00:53 Depart Departure Latest Vital Signs Vital Signs Date Time Temp Pulse Resp B/P (MAP) Pulse Ox O2 Delivery O2 Flow Rate FiO2 01/27/18 01:47 108/69 (82) 93 01/27/18 01:39 50 01/27/18 00:10 1.0 01/26/18 23:01 97.9 16 Room Air Impression: Primary Impression: Thoracic back pain Additional Impression: Paresthesia and pain of left extremity Condition: Improved Disposition: HOME OR SELF-CARE Referrals: HOMERO FITZGERALD PA-C (PCP) KATHIE RYAN MD New Scripts Methocarbamol (ROBAXIN-750) 750 Mg Tablet 1-2 TAB PO TID Y for MUSCLE SPASM RELIEF, #30 Prov: GINNY SWANSON DO 01/27/18 Oxycodone Hcl/Acetaminophen (PERCOCET 5-325 MG TABLET) 1 Each Tablet 1-2 EACH PO Q4-6H Y for PAIN, #20 Prov: IGNNY SWANSON DO 01/27/18 Patient Instructions: Cervical Radiculopathy (ED), Thoracic Back Strain (ED) Additional Instructions: Continue ibuprofen 200 mg 3-4 tablets 3 times a day with food Problem Qualifiers Primary Impression: Thoracic back pain Chronicity: acute Back pain laterality: left Qualified Codes: M54.6 - Pain in thoracic spine GINNY SWANSON DO January 26, 2018 22:59
[2018-01-26] MEDS ORDERED: PROMETHAZINE HCL 25 MG TAB PO ONE (23:15)
[2018-01-26] MEDS ORDERED: HYDROmorphone HCL 2 MG TAB PO ONE (23:15)
[2018-01-26] MEDS ORDERED: fentaNYL CITR 100 MCG/2 ML AMP IVP ONE (23:45)
[2018-01-26] MEDS ORDERED: ONDANSETRON 4 MG/2 ML VIAL IVP ONE (23:45)
[2018-01-27] MEDS ORDERED: OXYC-865 PO (00:54)
[2018-01-27] MEDS ORDERED: oxyCODONE/ACETAMIN 5/325MG TH 2 TAB/BOTTLE PO ONE ×2 (00:55→01:20)
[2018-01-27] MEDS ORDERED: METH-543 PO (01:19)
[2018-01-27] MEDS ORDERED: fentaNYL CITR 100 MCG/2 ML AMP IVP ONE (01:20)
[2018-01-27 01:47] VITALS: BP 108/69
== END 2018-01-27 01:56 | disposition home or self-care (01) ==
LOC: ER 23:13 → CANBEDREQ 01-27 01:36 → ER 01-27 01:56
DX: M54.6 Pain in thoracic spine (principal); R20.2 Paresthesia of skin
CPT/HCPCS: 96374; 99284; J2405; J3010; Q0169

== ENCOUNTER → 2018-01-28 | Outpatient (CLI) | payer OTHER ==
[~2018-01-28] MED LIST changes: +METH-543 PO; +OXYC-865 PO
--- NOTE | 2018-01-28 09:51 | RADIOLOGY IMAGING REPORT ---
FAC[place] [facility] [place] NAME: Daria Thompson : 1975 MR: [id number] V: [id number] EXAM DATE: ORDERING PHYSICIAN: GINNY SWANSON TECHNOLOGIST: Location: [facility] - [place] Patient: Daria Thompson : 1975 Visit/Account:[id number] Date of Sevice: 01/28/2018 C SPINE W/O CONTRAST History: Neck pain, left radiculopathy. COMPARISON STUDIES: none TECHNIQUE: Multi-planar, multi-sequence cervical spine MRI was performed without intravenous contras t administration. FINDINGS: Paraspinal soft tissues negative. Vertebral bodies have normal height. No subluxation. Marrow signal intensity appears benign. Desiccation and moderately severe loss of disc space height C5 C6-C7 T1. Ce rvical and visualized thoracic cord or appear normal. C2-C3: Negative. C3-C4: Mild disc bulge without central canal stenosis. Mild to moderate right foraminal stenosis due to uncovertebral joint hypertrophy. C4-C5: Mild disc bulge without central canal stenosis. Mild right foraminal stenosis due to facet hyp ertrophy. C5-C6: Broad-based disc bulge mildly narrows the central canal. Moderate right foraminal stenosis due to uncovertebral joint hypertrophy. Moderately severe left foraminal stenosis due to uncovertebral j oint hypertrophy and disc protrusion C6-C7: No central canal stenosis. Moderate right and mild left foraminal stenosis due to uncovertebra l joint hypertrophy. C7-T1: Mild disc bulge without significant central stenosis. Moderate left foraminal stenosis due to uncovertebral joint hypertrophy with disc protrusion and facet hypertrophy. IMPRESSION: Multilevel spondylosis resulting in foraminal stenosis at multiple levels but appearing w orst on the left at C5-C6 and C7-T1. There is no significant narrowing of the central canal. Report Dictated By: Reyes Esquivel MD at 01/28/2018 9:36 AM Report E-Signed By: Reyes Esquivel MD at 01/28/2018 9:48 AM WSN:[id number]
== END ==
LOC: MRI 08:09
PROVIDERS: ATTEND Emergency Medicine
DX: M48.02 Spinal stenosis, cervical region (principal); M47.892 Other spondylosis, cervical region
CPT/HCPCS: 72141